=== PATIENT | male | born 1965 | race Caucasian/White ===

== ENCOUNTER → 2019-11-20 | Outpatient (CLI) | payer OTHER ==
--- NOTE | 2019-11-20 08:49 | US ---
EXAMINATION TYPE: US kidneys/renal and bladder DATE OF EXAM: 11/20/2019 COMPARISON: CT 2014 CLINICAL HISTORY: R10.9 unspecified abdominal pain. Intermittent lower back pain EXAM MEASUREMENTS: Right Kidney: 12.8 x 6.2 x 6.5 cm Left Kidney: 11.6 x 6.6 x 6.8 cm Right Kidney: no hydronephrosis or masses seen Left Kidney: no hydronephrosis or masses seen Bladder: not fully distended Bilateral Jets seen: yes IMPRESSION: 1. Normal renal ultrasound.
== END | disposition home or self-care (01) ==
LOC: RADUSWWP 07:36
PROVIDERS: ATTEND Family Medicine
DX: R10.9 Unspecified abdominal pain (principal)
CPT/HCPCS: 76770